=== PATIENT | female | born 1985 | race Caucasian/White ===

== ENCOUNTER 2017-05-02 11:22 | Outpatient (CLI) | payer OTHER, MEDICAID ==
[2017-05-05 20:47] LABS: TEST RESULT REPORT (())
== END 2017-05-02 11:23 | disposition home or self-care (01) ==
LOC: LAB 11:22
PROVIDERS: ATTEND Obstetrics & Gynecology
DX: Z11.3 Encounter for screening for infections with a predominantly sexual mode of transmission (principal)
CPT/HCPCS: 36415; 81599; 86780; 86803; 87340; 87389

== ENCOUNTER 2017-07-29 13:51 | Outpatient (CLI) | payer OTHER, MEDICAID | END 2017-07-29 13:52 | disposition home or self-care (01) | LOC: LAB.R 13:51 | PROVIDERS: ATTEND Obstetrics & Gynecology | DX: R30.0 Dysuria (principal) | CPT/HCPCS: 87086; 87491; 87591 ==

== ENCOUNTER 2017-09-27 11:30 | Outpatient (CLI) | payer OTHER, MEDICAID | END 2017-09-27 11:31 | disposition home or self-care (01) | LOC: LAB.R 11:30 | PROVIDERS: ATTEND Nurse Practitioner Family | DX: J06.9 Acute upper respiratory infection, unspecified (principal) | CPT/HCPCS: 87086 ==

== ENCOUNTER 2018-01-10 11:10 | Outpatient (CLI) | payer OTHER, MEDICAID | END 2018-01-10 11:11 | disposition home or self-care (01) | LOC: LAB 11:10 | PROVIDERS: ATTEND Nurse Practitioner Family | DX: R53.83 Other fatigue (principal) | CPT/HCPCS: 36415; 84443 ==

== ENCOUNTER 2018-01-12 09:48 | Outpatient (CLI) | payer OTHER, MEDICAID | END 2018-01-12 09:49 | disposition home or self-care (01) | LOC: LAB.R 09:48 | PROVIDERS: ATTEND Obstetrics & Gynecology | DX: Z30.09 Encounter for other general counseling and advice on contraception (principal) | CPT/HCPCS: 87491; 87591 ==